=== PATIENT | male | born 1980 | race Caucasian/White ===

== ENCOUNTER 2024-05-12 18:27 | Inpatient (IN) | payer OTHER ==
[2024-05-12 19:01] VITALS: BMI 32.1
[2024-05-12] MEDS ORDERED: MAGNESIUM HYDROX 2400MG/30ML ORAL SUSPENSION 30 ML CUP PO PRN (19:54)
[2024-05-12] MEDS ORDERED: NALOXONE (NYS OPIOID OVERDOSE PROGRAM) 4 MG/0.1 ML SPRAY NS PRN (19:54)
[2024-05-12] MEDS ORDERED: guaiFENesin 600 MG TABLET.ER (FP) PO PRN (19:54)
[2024-05-12] MEDS ORDERED: POLYETHYLENE GLYCOL (HEALTHYLAX) 3350 17 GM PACKET PO PRN (19:54)
[2024-05-12] MEDS ORDERED: chlordiazePOXIDE HCL 25 MG CAPSULE PO PRN (19:54)
[2024-05-12] MEDS ORDERED: MAG HYDROX/AL HYDROX/SIMETH 30 ML UNIT-DOSE CUP PO PRN (19:54)
[2024-05-12] MEDS ORDERED: NICOTINE POLACRILEX 2 MG GUM BUC PRN (19:54)
[2024-05-12] MEDS ORDERED: IBUPROFEN 400 MG TABLET (FP) PO PRN (19:54)
[2024-05-12] MEDS ORDERED: P-EPHED 60MG/TRIPROLIDI 2.5MG TABLET PO PRN (19:54)
[2024-05-12] MEDS ORDERED: BENZONATATE 200 MG CAPSULE PO PRN (19:54)
[2024-05-12] MEDS ORDERED: DICYCLOMINE HCL 10 MG CAPSULE PO PRN (19:54)
[2024-05-12] MEDS ORDERED: NICOTINE POLACRILEX 2 MG LOZENGE BC PRN (19:54)
[2024-05-12] MEDS ORDERED: NALOXONE (NARCAN) HCL 4 MG/0.1 ML SPRAY NS PRN (19:54)
[2024-05-12] MEDS ORDERED: BENZOCAINE/MENTHOL (CHLORASEPTIC ) LOZENGE MM PRN (19:54)
[2024-05-12] MEDS ORDERED: ONDANSETRON *ODT* 4 MG TABLET ONE (20:09)
[2024-05-12] MEDS: methaDONE HCL 10 MG TABLET (FOR DETOX USE ONLY) PO ONE ×2 (20:23→21:11)
[2024-05-12] MEDS: METHOCARBAMOL 500 MG TABLET PO PRN (20:25)
[2024-05-12] MEDS: ONDANSETRON *ODT* 4 MG TABLET SL PRN (20:26)
[2024-05-12] MEDS: THIAMINE 100 MG TABLET PO SCH (22:26)
[2024-05-12] MEDS: MELATONIN 5 MG TABLETS PO SCH (22:26)
[2024-05-12] MEDS: levETIRAcetam 500 MG TABLET (FP) PO SCH (22:27)
[2024-05-12] MEDS: chlordiazePOXIDE HCL 25 MG CAPSULE PO SCH (22:27)
[2024-05-12] MEDS: cloNIDine HCL 0.1 MG TABLET PO PRN (22:27)
[2024-05-13] MEDS: PRENATAL VITAMINS W/ FOLIC ACID TABLET (FP) PO SCH (10:14)
[2024-05-13] MEDS ORDERED: FLU VACCINE (FLULAVAL) PF 45 MCG/0.5 ML SYRINGE 2024-2025 IM ONE (20:47)
[2024-05-14] MEDS: chlordiazePOXIDE HCL 25 MG CAPSULE PO SCH (05:40)
[2024-05-14] MEDS: IBUPROFEN 600 MG TABLET (FP) PO PRN (06:18)
[2024-05-14] MEDS: methaDONE HCL 10 MG TABLET (FOR DETOX USE ONLY) PO ONE (10:36)
[2024-05-14] MEDS: FLU VACCINE (FLULAVAL) PF 45 MCG/0.5 ML SYRINGE 2024-2025 IM ONE (10:50)
[2024-05-14 15:23] LABS: HIV INTERPRETATION NEGATIVE (NEGATIVE)
[2024-05-14] MEDS: BISMUTH SUBSALICYLATE 524 MG/30 ML PO PRN (22:16)
[2024-05-15] MEDS ORDERED: chlordiazePOXIDE HCL 10 MG CAPSULE PO PRN
[2024-05-15] MEDS: chlordiazePOXIDE HCL 10 MG CAPSULE PO SCH (05:09)
[2024-05-15] MEDS: ACETAMINOPHEN 325 MG TABLET (FP) PO PRN (10:31)
[2024-05-15] MEDS: LOPERAMIDE HCL 2 MG CAPSULE PO PRN (10:33)
[2024-05-15] MEDS: LIDOCAINE 5% TOPICAL PATCH TP ONE (20:10)
[2024-05-16] MEDS: chlordiazePOXIDE HCL 10 MG CAPSULE PO SCH (05:49)
[2024-05-16] MEDS: LIDOCAINE PATCH REMOVAL MC SCH (08:09)
[2024-05-16] MEDS: methaDONE HCL 10 MG TABLET (FOR DETOX USE ONLY) PO ONE (10:25)
[2024-05-16] MEDS: METHOCARBAMOL 500 MG TABLET PO PRN (21:15)
[2024-05-17] MEDS: chlordiazePOXIDE HCL 10 MG CAPSULE PO ONE (05:35)
[2024-05-17] MEDS: METOPROLOL TARTRATE 25 MG TABLET (FP) PO ONE (22:09)
[2024-05-18 09:25] VITALS: BP 111/75; PULSE 84; RESP 16; TEMP 97.3
[2024-05-18 17:49] LABS: BASO % 0.8 % (0-2.0); EOS % 2.7 % (0-4.5); HEMATOCRIT 40.5 % (35.4-49); HEMOGLOBIN 14.2 GM/dL (11.7-16.9); LYMPH % 32.7 % (8-40); MCH 31.9 pg (25.7-33.7); MCHC 35.1 g/dl (32.0-35.9); MEAN PLT VOLUME 9.2 fl (7.5-11.1); MONO % 14.2 % (3.8-10.2); NEUT % 49.6 % (42.8-82.8); PLATELET COUNT 220 10^3/uL (134-434); RBC 4.45 M/mm3 (4.00-5.60); RDW 13.3 % (11.9-15.9); WHITE BLOOD COUNT 7.7 K/mm3 (4.0-10.0)
[2024-05-18 18:07] LABS: POTASSIUM 4.1 mmol/L (3.5-5.1)
[2024-05-18 18:17] LABS: CALCIUM 9.3 mg/dL (8.5-10.1)
[2024-05-18 18:18] LABS: BLOOD UREA NITROGEN 15.4 mg/dL (7-18)
[2024-05-18 18:21] LABS: CREATININE 1.2 mg/dL (0.55-1.3)
[2024-05-18 18:22] LABS: BILIRUBIN,TOTAL 0.4 mg/dL (0.2-1); TOT PROT 7.6 g/dl (6.4-8.2)
[2024-05-18 18:53] LABS: HIV INTERPRETATION NEGATIVE (NEGATIVE)
== END 2024-05-18 12:05 | disposition other institution (70) | DRG 773 ==
LOC: YASAS 18:27 → Y3N 19:45
PROVIDERS: ADMIT Allergy & Immunology; ATTEND Surgery
PROC: HZ2ZZZZ Detoxification Services for Substance Abuse Treatment (ICD-10-PCS; principal; 2024-05-12)
DX: F11.23 Opioid dependence with withdrawal (principal); F10.230 Alcohol dependence with withdrawal, uncomplicated; F14.20 Cocaine dependence, uncomplicated; F12.20 Cannabis dependence, uncomplicated; F17.210 Nicotine dependence, cigarettes, uncomplicated; F25.9 Schizoaffective disorder, unspecified; F31.9 Bipolar disorder, unspecified; F19.282 Other psychoactive substance dependence with psychoactive substance-induced sleep disorder; F19.24 Other psychoactive substance dependence with psychoactive substance-induced mood disorder; G40.909 Epilepsy, unspecified, not intractable, without status epilepticus; G47.33 Obstructive sleep apnea (adult) (pediatric); M54.2 Cervicalgia; M54.50 Low back pain, unspecified; G89.29 Other chronic pain
CPT/HCPCS: 36415; 71046-TC-FY; 80053; 80305; 80307; 85025; 86780; 86803; 87389; 87811; 90656; 93005; 93010; G0008; Q0162

== ENCOUNTER 2024-05-18 12:18 | Inpatient (IN) | payer OTHER ==
[2024-05-18] MEDS ORDERED: BENZONATATE 200 MG CAPSULE PO PRN (13:31)
[2024-05-18] MEDS ORDERED: NALOXONE (NARCAN) HCL 4 MG/0.1 ML SPRAY NS PRN (13:31)
[2024-05-18] MEDS ORDERED: guaiFENesin 600 MG TABLET.ER (FP) PO PRN (13:31)
[2024-05-18] MEDS ORDERED: IBUPROFEN 400 MG TABLET (FP) PO PRN (13:31)
[2024-05-18] MEDS ORDERED: BENZOCAINE/MENTHOL (CHLORASEPTIC ) LOZENGE MM PRN (13:31)
[2024-05-18] MEDS ORDERED: POLYETHYLENE GLYCOL (HEALTHYLAX) 3350 17 GM PACKET PO PRN (13:31)
[2024-05-18] MEDS ORDERED: MAGNESIUM HYDROX 2400MG/30ML ORAL SUSPENSION 30 ML CUP PO PRN (13:31)
[2024-05-18] MEDS ORDERED: MAG HYDROX/AL HYDROX/SIMETH 30 ML UNIT-DOSE CUP PO PRN (13:31)
[2024-05-18] MEDS ORDERED: NALOXONE HCL 0.4 MG/ML VIAL IVPUSH PRN (13:31)
[2024-05-18] MEDS: IBUPROFEN 600 MG TABLET (FP) PO PRN (15:23)
[2024-05-18] MEDS: LOPERAMIDE HCL 2 MG CAPSULE PO PRN (15:23)
[2024-05-18] MEDS: THIAMINE 100 MG TABLET PO SCH (21:25)
[2024-05-18] MEDS: MELATONIN 5 MG TABLETS PO SCH (21:25)
[2024-05-18] MEDS: METHOCARBAMOL 500 MG TABLET PO PRN (21:28)
[2024-05-18] MEDS: QUEtiapine FUMARATE 200 MG TABLET PO ONE (23:02)
[2024-05-19] MEDS: hydrOXYzine PAMOATE 25 MG CAPSULE (FP) PO PRN (09:33)
[2024-05-19] MEDS: PRENATAL VITAMINS W/ FOLIC ACID TABLET (FP) PO SCH (09:34)
[2024-05-19] MEDS: QUEtiapine FUMARATE 200 MG TABLET PO SCH (22:12)
[2024-05-20] MEDS: busPIRone HCL 10 MG TABLET (FP) PO SCH (21:48)
[2024-05-20] MEDS: ACETAMINOPHEN 325 MG TABLET (FP) PO PRN (21:48)
[2024-05-21 07:11] VITALS: TEMP 97.6
[2024-05-21 10:43] VITALS: BP 132/86; PULSE 80; RESP 18
== END 2024-05-21 14:41 | disposition left against medical advice (07) | DRG 770 ==
LOC: YASAS 12:18 → Y3NR 12:20 → Y3W 05-21 10:20
PROVIDERS: ADMIT Psychiatry & Neurology Pain Medicine; ATTEND Psychiatry & Neurology Pain Medicine
PROC: HZ42ZZZ Group Counseling for Substance Abuse Treatment, Cognitive-Behavioral (ICD-10-PCS; principal; 2024-05-18)
DX: F11.20 Opioid dependence, uncomplicated (principal); F10.20 Alcohol dependence, uncomplicated; F14.20 Cocaine dependence, uncomplicated; F12.20 Cannabis dependence, uncomplicated; F17.210 Nicotine dependence, cigarettes, uncomplicated; F25.9 Schizoaffective disorder, unspecified; F31.9 Bipolar disorder, unspecified; F41.9 Anxiety disorder, unspecified; G47.33 Obstructive sleep apnea (adult) (pediatric); M54.2 Cervicalgia; M54.50 Low back pain, unspecified; G89.29 Other chronic pain